=== PATIENT | male | born 1975 | race Caucasian/White ===

== ENCOUNTER 2018-11-18 11:03 | Outpatient (CLI) | payer BC ==
--- NOTE | 2018-11-18 13:18 | XRAY Report ---
Reason: LEFT WRIST PAIN Procedure Date: 11/18/2018 Accession Number: [id number] / [id number] Procedure: WCP - Wrist 3 View LT CPT Code: FULL RESULT: EXAM: LEFT WRIST RADIOGRAPHY EXAM DATE: 11/18/2018 11:03 AM. CLINICAL HISTORY: LEFT WRIST PAIN, fall. COMPARISON: None. TECHNIQUE: 3 views. FINDINGS: Bones: Scaphoid view not obtained. No fractures or bone lesions. Joints: Normal. No subluxations. Soft Tissues: Normal. No soft tissue swelling. IMPRESSION: Normal wrist radiography. RADIA
== END 2018-11-18 23:59 | disposition home or self-care (01) ==
LOC: DI.WCP 11:03 → EDSTATUS 13:36 → DI.WCP 23:59
PROVIDERS: ATTEND Family Medicine
DX: M25.532 Pain in left wrist (principal)

== ENCOUNTER 2019-05-31 08:55 | Outpatient (CLI) | payer OTHER, BC ==
--- NOTE | 2019-05-31 09:32 | XRAY Report ---
Reason: SCREENING Procedure Date: 05/31/2019 Accession Number: [id number] / [id number] Procedure: XR - Chest 2 View X-Ray CPT Code: 80911 Final Report FULL RESULT: EXAM: CHEST RADIOGRAPHY EXAM DATE: 05/31/2019 09:02 AM. CLINICAL HISTORY: SCREENING. 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 COMPARISON: None. TECHNIQUE: 2 views. FINDINGS: Lungs/Pleura: No focal opacities evident. No pleural effusion. No pneumothorax. Prominent lung volumes. Mediastinum: Heart and mediastinal contours are unremarkable. Other: 11 degree convex left upper thoracic scoliosis. IMPRESSION: 1. Prominent lung volumes. Question asthma, good inspiratory effort or other etiology. Recommend clinical correlation. 2. Mild upper thoracic scoliosis. RADIA
== END 2019-05-31 08:56 | disposition home or self-care (01) ==
LOC: EDSTATUS 08:55 → DI 08:55
PROVIDERS: ATTEND Family Medicine
DX: Z13.9 Encounter for screening, unspecified (principal); M41.9 Scoliosis, unspecified
CPT/HCPCS: 71046

== ENCOUNTER 2020-02-02 13:59 | Outpatient (CLI) | payer BC | END 2020-02-02 14:00 | disposition home or self-care (01) | LOC: COV 13:59 | PROVIDERS: ATTEND Family Medicine | DX: R50.9 Fever, unspecified (principal); R05 Cough; R53.83 Other fatigue; J02.9 Acute pharyngitis, unspecified; R09.81 Nasal congestion; J34.89 Other specified disorders of nose and nasal sinuses; Z20.828 Contact with and (suspected) exposure to other viral communicable diseases ==

== ENCOUNTER 2020-02-28 13:05 | Emergency (ER) | payer BC ==
--- NOTE | 2020-02-28 14:34 | ED Physician Documentation ---
History of Present Illness - Stated complaint Stated Complaint: RABIES EXPOSURE - Chief complaint Chief Complaint: General - History obtained from History obtained from: Patient - Additonal information Additional information: 44-year-old male presents with his and daughter for rabies exposure and vaccination. He did sleep in a cabin 3 nights ago in which a bat was found in the a.m. He denies handling the bat or having any known bite or wounds. However on the advisement of the health department he presents to the emergency department for immunoglobulin and vaccination of rabies. He has no pertinent past medical history. Takes no routinely prescribed medications. Non-smoker. Review of Systems Constitutional: reports: Reviewed and negative Ears: reports: Reviewed and negative Nose: reports: Reviewed and negative Throat: reports: Reviewed and negative Cardiac: reports: Reviewed and negative Respiratory: reports: Reviewed and negative GI: reports: Reviewed and negative : reports: Reviewed and negative Skin: reports: Reviewed and negative Musculoskeletal: reports: Reviewed and negative Neurologic: reports: Reviewed and negative PD PAST MEDICAL HISTORY - Past Medical History Past Medical History: No - Past Surgical History Past Surgical History: No - Present Medications Home Medications: Ambulatory Orders Medication Instructions Recorded Confirmed No Known Home Medications 02/28/20 02/28/20 - Allergies Allergies/Adverse Reactions: Allergies Allergy/AdvReac Type Severity Reaction Status Date / Time No Known Drug Allergies Allergy Verified 02/28/20 13:22 - Social History Does the pt smoke?: No Smoking Status: Never smoker Does the pt drink ETOH?: No Does the pt have substance abuse?: No - Immunizations Immunizations are current?: Yes - POLST Patient has POLST: No PD ED PE NORMAL - General General: Alert and oriented X 3, No acute distress - HEENT HEENT: PERRL - Neck Neck: Supple, no meningeal sign - Cardiac Cardiac: RRR, No murmur - Respiratory Respiratory: Clear bilaterally - Abdomen Abdomen: Normal bowel sounds, Soft, Non tender, Non distended - Derm Derm: Normal color, Warm and dry, No rash - Extremities Extremities: No deformity - Neuro Neuro: Alert and oriented X 3 Results - Vitals Vitals: Vital Signs - 24 hr 02/28/20 13:23 Temperature 36.6 C Heart Rate 56 L Respiratory 14 Rate Blood Pressure 113/71 O2 Saturation 100 Oxygen O2 Source Room air PD MEDICAL DECISION MAKING - ED course Complexity details: d/w family ED course: 44-year-old male presents to the emergency department for vaccination of rabies as well as the immunoglobulin after being exposed to a bat in his cabin overnight. The exposure occurred 3 days ago. However at the behest of the health department the family presents today for the initiation of treatment. Both immunoglobulin vaccine was given today. The patient will have to return on 03/02/2020, 03/06/2020 and 03/13/2020 to complete the rest of the vaccine series. Departure - Departure Disposition: 01 Home, Self Care Clinical Impression: Exposure to bat without known bite Condition: Stable Record reviewed to determine appropriate education?: Yes Comments: The additional rabies vaccinations will need to be given on 03/02/2020, 03/06/2020 and 03/13/2020 to complete the series.
[2020-02-28] MEDS ORDERED: RABIES VACCINE 2.5 UNIT SYRINGE IM ONE (14:42)
[2020-02-28] MEDS ORDERED: RABIES IMMUNE GLOBULIN 300 UNITS/2 ML IM STA (14:43)
[2020-02-28 16:14] VITALS: BP 117/84
== END 2020-02-28 16:42 | disposition home or self-care (01) ==
LOC: ED 13:05
DX: Z20.3 Contact with and (suspected) exposure to rabies (principal); Z29.14 Encounter for prophylactic rabies immune globulin
CPT/HCPCS: 90471; 96372; 99282; 99283

== ENCOUNTER 2020-03-02 10:08 | Emergency (ER) | payer BC ==
[2020-03-02] MEDS ORDERED: RABIES VACCINE 2.5 UNIT SYRINGE IM ONE (10:19)
[2020-03-02 10:22] VITALS: BP 112/65
--- NOTE | 2020-03-02 11:24 | ED Physician Documentation ---
History of Present Illness - Stated complaint Stated Complaint: 2ND RABIES - Chief complaint Chief Complaint: General - History obtained from History obtained from: Patient - Additonal information Additional information: 44yM presents for second dose of rabies vaccine. Asymptomatic at present. No other complaints. Review of Systems Constitutional: denies: Fever PD PAST MEDICAL HISTORY - Past Surgical History Past Surgical History: No - Present Medications Home Medications: Ambulatory Orders Medication Instructions Recorded Confirmed No Known Home Medications 02/28/20 03/02/20 - Allergies Allergies/Adverse Reactions: Allergies Allergy/AdvReac Type Severity Reaction Status Date / Time No Known Drug Allergies Allergy Verified 03/02/20 10:22 - Social History Does the pt smoke?: No Smoking Status: Never smoker Does the pt drink ETOH?: No Does the pt have substance abuse?: No - Immunizations Immunizations are current?: Yes - POLST Patient has POLST: No PD ED PE NORMAL - Vitals Vital signs reviewed: Yes - General General: Alert and oriented X 3 - HEENT HEENT: Atraumatic, PERRL, EOMI - Derm Derm: Normal color - Neuro Neuro: Alert and oriented X 3 - Psych Psych: Normal mood, Normal affect Results - Vitals Vitals: Vital Signs - 24 hr 03/02/20 10:21 Temperature 35.9 C L Heart Rate 68 Respiratory 16 Rate Blood Pressure 112/65 O2 Saturation 100 Oxygen O2 Source Room air PD MEDICAL DECISION MAKING - ED course ED course: 44-year-old man presents for second dose of rabies vaccine. Asymptomatic at present no complaints. Return precautions given follow-up for third dose. Departure - Departure Disposition: 01 Home, Self Care Clinical Impression: Rabies exposure Condition: Good Instructions: Rabies Vaccine suspension for injection Comments: You have been seen for rabies postexposure prophylaxis. Monitor for any symptoms and return for any new or concerning symptoms.Follow-up with your primary doctor. You will need to return for further vaccine course. Discharge Date/Time: 03/02/20 12:08
== END 2020-03-02 12:08 | disposition home or self-care (01) ==
LOC: ED 10:08
DX: Z20.3 Contact with and (suspected) exposure to rabies (principal)
CPT/HCPCS: 90471; 99281

== ENCOUNTER 2020-06-24 08:00 | Outpatient (CLI) | payer BC ==
[2020-06-24 18:01] LABS: BASOPHILS % (AUTO) 0.5 %; EOSINOPHILS # (AUTO) 0.1 10^3/uL (0.0-0.7); EOSINOPHILS % (AUTO) 0.8 %; HCT - HEMATOCRIT 41.3 % (42.0-52.0); HGB - HEMOGLOBIN 14.5 g/dL (14.0-18.0); LYMPHOCYTES # (AUTO) 1.7 10^3/uL (1.5-3.5); LYMPHOCYTES % (AUTO) 27.3 %; MEAN CORPUSCULAR HEMOGLOBIN 31.1 pg (27.0-31.0); MEAN CORPUSCULAR HGB CONC 35.1 g/dL (32.0-36.0); MEAN CORPUSCULAR VOLUME 88.6 fL (80.0-94.0); MEAN PLATELET VOLUME 11.3 fL (7.4-11.4); MONOCYTES # (AUTO) 0.5 10^3/uL (0.0-1.0); MONOCYTES % (AUTO) 7.7 %; NEUTROPHILS % (AUTO) 63.5 %; PLT - PLATELET COUNT 266 10^3/uL (130-450); RED BLOOD COUNT 4.66 10^6/uL (4.70-6.10); RED CELL DISTRIBUTION WIDTH 11.7 % (12.0-15.0); WHITE BLOOD COUNT 6.3 x10^3/uL (4.8-10.8)
== END 2020-06-24 23:59 | disposition home or self-care (01) ==
LOC: LAB.WCP 08:00
PROVIDERS: ATTEND Nurse Practitioner Family
DX: R59.1 Generalized enlarged lymph nodes (principal)
CPT/HCPCS: 36415; 85025

== ENCOUNTER 2020-07-04 11:37 | Outpatient (CLI) | payer BC ==
--- NOTE | 2020-07-04 18:19 | Ultrasound Report ---
PROCEDURE: Head or Neck Soft Tissue INDICATIONS: LYMPHADENOPATHY TECHNIQUE: Real-time scanning was performed of the left neck at area of concern, with image documentation. COMPARISON: None FINDINGS: Sonographic images of the left neck demonstrate the presence of two lymph nodes measuring 15 x 8 x 4 mm and 7 x 7 x 3 mm. IMPRESSION: Normal-appearing lymph nodes. Reviewed by: Blanca Hill MD on 07/04/2020 5:18 PM [email or web address] Approved by: Blanca Hill MD on 07/04/2020 5:18 PM AKTJ Station ID: [id number]
== END 2020-07-04 11:38 | disposition home or self-care (01) ==
LOC: DI 11:37
PROVIDERS: ATTEND Nurse Practitioner Family
DX: R59.1 Generalized enlarged lymph nodes (principal)

== ENCOUNTER 2021-05-21 08:45 | Outpatient (CLI) | payer BC ==
[2021-05-21 09:05] LABS: BASOPHILS % (AUTO) 0.5 %; EOSINOPHILS # (AUTO) 0.1 10^3/uL (0.0-0.7); EOSINOPHILS % (AUTO) 2.1 %; HCT - HEMATOCRIT 40.2 % (42.0-52.0); HGB - HEMOGLOBIN 14.3 g/dL (14.0-18.0); LYMPHOCYTES # (AUTO) 1.2 10^3/uL (1.5-3.5); LYMPHOCYTES % (AUTO) 29.5 %; MEAN CORPUSCULAR HEMOGLOBIN 31.8 pg (27.0-31.0); MEAN CORPUSCULAR HGB CONC 35.6 g/dL (32.0-36.0); MEAN CORPUSCULAR VOLUME 89.5 fL (80.0-94.0); MEAN PLATELET VOLUME 11.2 fL (7.4-11.4); MONOCYTES # (AUTO) 0.4 10^3/uL (0.0-1.0); NEUTROPHILS # (AUTO) 2.4 10^3/uL (1.5-6.6); NEUTROPHILS % (AUTO) 57.9 %; PLT - PLATELET COUNT 192 10^3/uL (130-450); RED BLOOD COUNT 4.49 10^6/uL (4.70-6.10); RED CELL DISTRIBUTION WIDTH 12.2 % (12.0-15.0); WHITE BLOOD COUNT 4.2 x10^3/uL (4.8-10.8)
[2021-05-21 09:19] LABS: BILIRUBIN,URINE NEGATIVE (NEGATIVE); GLUCOSE, URINE (UA) NEGATIVE (NEGATIVE); KETONES,URINE (UA) NEGATIVE (NEGATIVE); LEUKOCYTE ESTERASE, URINE NEGATIVE (NEGATIVE); NITRITE,URINE NEGATIVE (NEGATIVE); OCCULT BLOOD,URINE NEGATIVE (NEGATIVE); PH,URINE 6.5 PH (5.0-7.5); PROTEIN,URINE NEGATIVE (NEGATIVE); UROBILINOGEN,URINE 0.2 (NORMAL) E.U./dL (NORMAL)
[2021-05-21 09:24] LABS: ALBUMIN 4.9 g/dL (3.2-5.5); ALBUMIN/GLOBULIN RATIO 2.3 (1.0-2.2); ALKALINE PHOSPHATASE 33 IU/L (42-121); ALT ALANINE AMINOTRANSFERASE 23 IU/L (10-60); AST ASPARTATE AMINOTRANSFERASE 32 IU/L (10-42); BILIRUBIN,TOTAL 0.8 mg/dL (0.2-1.0); BUN - BLOOD UREA NITROGEN 21 mg/dL (6-20); CALCIUM 9.4 mg/dL (8.5-10.3); CARBON DIOXIDE - CO2 26 mmol/L (21-32); CHLORIDE 101 mmol/L (101-111); CHOL/HDL RATIO 2.3 (<5.0); CHOLESTEROL 200 mg/dL; GFR - MDRD 81 (>89); GLUCOSE 86 mg/dL (70-100); HDL CHOLESTEROL 86 mg/dL; LDL CHOLESTEROL,CALCULATED 105 mg/dL; LDL/HDL RATIO 1.2 (<3.6); SODIUM 137 mmol/L (135-145); TRIGLYCERIDES 44 mg/dL; VLDL CHOLESTEROL 9 mg/dL
[2021-05-21 09:33] LABS: CLARITY,URINE CLEAR (CLEAR)
[2021-05-21 09:34] LABS: BACTERIA,URINE None Seen /HPF (None Seen); RBC,URINE None Seen /HPF (0-5); SQUAMOUS EPITHELIAL CELL,UR NONE SEEN (<= Few); WBC,URINE 0-3 /HPF (0-3)
== END 2021-05-21 08:46 | disposition home or self-care (01) ==
LOC: LAB 08:45
PROVIDERS: ATTEND Nurse Practitioner
DX: Z00.00 Encounter for general adult medical examination without abnormal findings (principal); Z13.220 Encounter for screening for lipoid disorders
CPT/HCPCS: 36415; 80053; 80061; 81001; 83721; 85025; 87086

== ENCOUNTER 2023-02-10 10:09 | Day surgery (SDC) | payer BC ==
[2023-02-10] MEDS ORDERED: LACTATED RINGERS 1,000 ML IV ONE ×2 (10:15→11:55)
[2023-02-10 10:31] VITALS: O2SAT 100
--- NOTE | 2023-02-10 11:01 | ANESTHESIA ---
Pre-Anesthesia VS, & Labs - Diagnosis screening exam - Procedure colonoscopy Vital Signs: Temp Pulse Resp BP Pulse Ox O2 Flow Rate 36.3 C L 40 L 13 121/64 100 02/10/23 10:15 02/10/23 10:15 02/10/23 10:15 02/10/23 10:15 02/10/23 10:15 Height: 5 ft 6 in Weight (kg): 64.5 kg Body Mass Index: 22.9 BMI Classification: Normal - NPO >8 hours Home Medications and Allergies No Known Home Medications 02/28/20 Allergies/Adverse Reactions: Allergies Allergy/AdvReac Type Severity Reaction Status Date / Time No Known Drug Allergies Allergy Verified 03/02/20 10:22 Anes History & Medical History - Anesthetic History Family history of Anesthesia Complications: Denies Family history of Malignant Hyperthermia: Denies - Medical History Cardiovascular: reports: None Pulmonary: reports: None Gastrointestinal: reports: None Urinary: reports: None Neuro: reports: None Musculoskeletal: reports: None Endocrine/Autoimmune: reports: None Skin: reports: None Smoking Status: Never smoker Psychosocial: reports: No issues indicated History of Cancer?: No Exam General: Alert, Oriented x3, Cooperative, No acute distress Dental: WNL Mouth Openin Fingerbreadth Neck Mobility: Normal Mallampati classification: II Thyromental Distance: 4-6 cm Mental/Cognitive Status: Alert/Oriented X3, Normal for patient Plan Anesthesia Type: General, Total IV Consent for Procedure(s) Verified and Reviewed: Yes Code Status: Attempt Resuscitation ASA classification: 1-Healthy patient Is this case an emergency?: No
[2023-02-10] MEDS ORDERED: PROPOFOL 500 MG/50 ML 500 MG/50 ML VIAL ONE (11:27)
[2023-02-10 12:32] VITALS: BP 101/57
--- NOTE | 2023-02-10 13:46 | ANESTHESIA POST OP EVALUATION ---
Anesthesia Post Eval - Post Anesthesia Eval Vitals: Last Vital Signs Temp 36.3 C L 02/10/23 11:55 Pulse 42 L 02/10/23 12:22 Resp 17 02/10/23 12:22 BP 101/57 L 02/10/23 12:22 Pulse Ox 100 02/10/23 12:22 O2 Flow Rate CV Function Including HR & BP: Stable Pain Control: Satisfactory Nausea & Vomiting: Negative Mental Status: Baseline Respiratory Status: Airway Patent Hydration Status: Satisfactory Anesthesia Complications: None
== END 2023-02-10 10:10 | disposition home or self-care (01) ==
LOC: SDS 10:09
PROVIDERS: ATTEND Surgery
DX: Z12.11 Encounter for screening for malignant neoplasm of colon (principal); K64.0 First degree hemorrhoids; Z87.891 Personal history of nicotine dependence
CPT/HCPCS: 45378; J7120